=== PATIENT | male | born 1955 | race Caucasian/White ===

== ENCOUNTER 2018-06-08 08:10 | Emergency (ER) | payer OTHER ==
--- NOTE | 2018-06-08 08:39 | EDPHY ---
H & P Time Seen by Provider: 06/08/18 08:35 HPI/ROS: CHIEF COMPLAINT: Short of breath trouble breathing HISTORY OF PRESENT ILLNESS: Patient presents with shortness of breath for the last 3 days. He says it is not better or worse when he exerts himself and says he just feels like he "wore my body out." He denies coughing chest pain or fever. He does continue to drink alcohol. He did have a blood clot, both DVT and PE in 2011 diagnosed in [place], not currently on anticoagulation. Denies associated leg swelling, hemoptysis. Symptoms mild, not associated with chest pain or palpitations. No coughing, no sputum production. Denies medication ingestion or overdose. REVIEW OF SYSTEMS: Eye: no change in vision ENT: no sore throat Cardiac: no chest pain or syncope Pulmonary: HPI Abdomen: no vomiting or diarrhea, has had abdominal pain for the last 2 days. Generalized not localized. Musculoskeletal: no back pain Skin: no rash Neuro: no headache Constitutional: no fever : no urinary symptoms A comprehensive 10 point review of systems is otherwise negative aside from elements mentioned in the history of present illness. PAST MEDICAL HISTORY: DVT and PE in 2011 Social history: Drinks daily vodka General Appearance: Alert and conversant, cooperative. Eyes: No scleral icterus. ENT, Mouth: Normal mucous membranes. Respiratory: Normal respiratory effort, breath sounds equal, lungs are clear to auscultation. No wheezing, speaks in full sentences. Cardiovascular: Regular rate and rhythm. Tachycardic without murmur. Gastrointestinal: Abdomen is soft and non tender. No rebound or guarding, negative Tabares sign, no McBurney's point tenderness. Neurological: Alert, face symmetric, normal motor and sensory in extremities. Slightly tremulous. Skin: Bilateral venous stasis changes both legs. Musculoskeletal: No peripheral edema. No calf tenderness. Psychiatric: Not agitated. Emergency Department course/MDM: Evaluation of shortness of breath with history of DVT and PE to include EKG, chest x-ray, D-dimer. Low suspicion for acute coronary syndrome. Low pretest probability for acute pulmonary embolism. Evaluation of abdominal pain in this patient who drinks daily vodka to include liver function test and lipase. 956: Diagnostics reviewed, continues to drink alcohol, does not appear to have acute hepatitis or pancreatitis. Pulmonary embolism and ACS unlikely. Does not have signs or symptoms of pneumonia. When I examined him at this time is heart rate about 100. Continues to drink alcohol, is a little bit tremulous on discharge, does not want to stop drinking. Most likely reason I think for his elevated heart rate is mild withdrawal. Smoking Status: Former smoker Constitutional: Initial Vital Signs Temperature (C) 36.9 C 06/08/18 08:10 Heart Rate 116 H 06/08/18 08:10 Respiratory Rate 16 06/08/18 08:10 Blood Pressure 151/100 H 06/08/18 08:10 O2 Sat (%) 96 06/08/18 08:10 O2 Delivery Mode Room Air O2 (L/minute) 2 Allergies/Adverse Reactions: No Known Allergies Allergy (Unverified 06/08/18 08:14) Home Medications: Medication Instructions Recorded NK [No Known Home Meds] 06/08/18 Medical Decision Making - Diagnostics EKG Interpretation: 12-lead EKG interpreted by me; official reading is in computer system. My interpretation is sinus tachycardia rate 106 with normal intervals, no ischemic changes. Imaging Results: Imaging Impressions Chest X-Ray 06/08/18 08:45 Impression: Anterobasilar subsegmental atelectasis. Imaging: I viewed and interpreted images myself Differential Diagnosis: Differential diagnosis considered for shortness of breath including but not limited to pulmonary infectious process, COPD, asthma, pulmonary embolus and congestive heart failure. - Data Points Laboratory Results: Laboratory Results 06/08/18 08:54 06/08/18 08:54 06/08/18 06/08/18 06/08/18 08:54 08:54 08:54 WBC 11.23 10^3/uL H 10^3/uL (3.80-9.50) RBC 5.76 10^6/uL 10^6/uL (4.40-6.38) Hgb 18.2 g/dL H g/dL (13.7-17.5) Hct 49.5 % % (40.0-51.0) MCV 85.9 fL fL (81.5-99.8) MCH 31.6 pg pg (27.9-34.1) MCHC 36.8 g/dL H g/dL (32.4-36.7) RDW 11.4 % L % (11.5-15.2) Plt Count 242 10^3/uL 10^3/uL (150-400) MPV 9.8 fL fL (8.7-11.7) Neut % (Auto) 81.5 % H % (39.3-74.2) Lymph % (Auto) 13.7 % L % (15.0-45.0) [place] % (Auto) 3.6 % L % (4.5-13.0) Eos % (Auto) 0.4 % L % (0.6-7.6) Baso % (Auto) 0.5 % % (0.3-1.7) Nucleat RBC Rel Count 0.0 % % (0.0-0.2) Absolute Neuts (auto) 9.16 10^3/uL H 10^3/uL (1.70-6.50) Absolute Lymphs (auto) 1.54 10^3/uL 10^3/uL (1.00-3.00) Absolute Monos (auto) 0.40 10^3/uL 10^3/uL (0.30-0.80) Absolute Eos (auto) 0.04 10^3/uL 10^3/uL (0.03-0.40) Absolute Basos (auto) 0.06 10^3/uL 10^3/uL (0.02-0.10) Absolute Nucleated RBC 0.00 10^3/uL 10^3/uL (0-0.01) Immature Gran % 0.3 % % (0.0-1.1) Immature Gran # 0.03 10^3/uL 10^3/uL (0.00-0.10) D-Dimer 0.27 ug/mLFEU ug/mLFEU (0.00-0.50) Sodium 140 mEq/L mEq/L (135-145) Potassium 4.2 mEq/L mEq/L (3.3-5.0) Chloride 104 mEq/L mEq/L (97-110) Carbon Dioxide 20 mEq/l L mEq/l (22-31) Anion Gap 16 mEq/L mEq/L (8-16) BUN 17 mg/dL mg/dL (7-23) Creatinine 0.7 mg/dL mg/dL (0.7-1.3) Estimated GFR > 60 Glucose 123 mg/dL H mg/dL (70-100) Calcium 9.0 mg/dL mg/dL (8.5-10.4) Total Bilirubin 1.5 mg/dL H mg/dL (0.1-1.4) Conjugated Bilirubin 0.2 mg/dL mg/dL (0.0-0.5) Unconjugated Bilirubin 1.3 mg/dL H mg/dL (0.0-1.1) AST 43 IU/L IU/L (17-59) ALT 41 IU/L IU/L (21-72) Alkaline Phosphatase 81 IU/L IU/L (38-126) Total Protein 7.3 g/dL g/dL (6.3-8.2) Albumin 4.1 g/dL g/dL (3.5-5.0) Lipase 188 IU/L IU/L (23-300) Ethyl Alcohol 95 mg/dL H mg/dL (0-10) Medications Given: Discontinued Medications Sodium Chloride (Ns) 1,000 mls @ 0 mls/hr IV EDNOW ONE; Wide Open PRN Reason: Protocol Stop: 06/08/18 08:45 Last Admin: 06/08/18 08:53 Dose: 1,000 mls Sodium Chloride (Ns) 1,000 mls @ 0 mls/hr IV EDNOW ONE; Wide Open PRN Reason: Protocol Stop: 06/08/18 09:55 Last Admin: 06/08/18 10:04 Dose: 1,000 mls Departure - Departure Disposition: Home, Routine, Self-Care Clinical Impression: Dyspnea Qualifiers: Dyspnea type: unspecified Qualified Code(s): R06.00 - Dyspnea, unspecified Abdominal pain Qualifiers: Abdominal location: generalized Qualified Code(s): R10.84 - Generalized abdominal pain Alcohol intoxication Qualifiers: Complication of substance-induced condition: uncomplicated Qualified Code(s): F10.920 - Alcohol use, unspecified with intoxication, uncomplicated Condition: Good Instructions: Dyspnea (ED), Alcohol Dependence (ED) Referrals: Padilla Hughes MD [[facility] [place] - As per Instructions
[2018-06-08] MEDS ORDERED: NS 1,000 ML IV ONE ×2 (08:44→09:54)
--- NOTE | 2018-06-08 08:54 | CPEKG ---
Test Reason : OPEN Blood Pressure : / mmHG Vent. Rate : 106 BPM Atrial Rate : 105 BPM P-R Int : 157 ms QRS Dur : 078 ms QT Int : 315 ms P-R-T Axes : 061 073 056 degrees QTc Int : 419 ms Sinus tachycardia Confirmed by Noman Carlos ([id number]) on 06/08/2018 8:54:34 AM Referred By: Confirmed By:Noman Carlos
[2018-06-08 09:22] LABS: PLATELET COUNT 242 10^3/uL (150-400)
[2018-06-08 10:47] VITALS: BP 168/109
== END 2018-06-08 10:47 | disposition home or self-care (01) ==
DX: R06.00 Dyspnea, unspecified (principal); R10.84 Generalized abdominal pain; F10.920 Alcohol use, unspecified with intoxication, uncomplicated; E86.9 Volume depletion, unspecified; Y90.4 Blood alcohol level of 80-99 mg/100 ml; Z86.718 Personal history of other venous thrombosis and embolism; Z86.711 Personal history of pulmonary embolism; Z87.891 Personal history of nicotine dependence
CPT/HCPCS: G0480